=== PATIENT | male | born 1945 | race Caucasian/White ===

== ENCOUNTER 2021-04-18 11:30 | Day surgery (SDC) | payer OTHER, SELFPAY ==
[2021-04-16 10:02] LABS: BILIRUBIN,URINE NEGATIVE (NEGATIVE); BLOOD, URINE NEGATIVE (NEGATIVE); CLARITY/URINE CLEAR (CLEAR); COLOR,URINE YELLOW (YELLOW); GLUCOSE,URINE NEGATIVE (NEGATIVE); KETONES,URINE NEGATIVE (NEGATIVE); LEUKOCYTE ESTERASE ,URINE NEGATIVE (NEGATIVE); NITRITE, URINE NEGATIVE (NEGATIVE); PROTEIN URINE NEGATIVE (NEGATIVE); UROBILINOGEN,URINE 0.2 (0.2-1.0)
[2021-04-16 10:07] LABS: BASOPHILS % (AUTO) 0.3 % (0.0-2.0); EOSINOPHILS % (AUTO) 0.9 % (0.0-4.0); HEMATOCRIT 43.7 % (36-54); HEMOGLOBIN 14.7 g/dL (14.0-18.0); LYMPHOCYTES # (AUTO) 1.4 K/uL (1.0-5.5); LYMPHOCYTES % (AUTO) 28.1 % (20.5-51.5); MEAN CORPUSCULAR HEMOGLOBIN 33 pg (27-31); MEAN CORPUSCULAR HGB CONC 34 % (32-36); MEAN CORPUSCULAR VOLUME 97 fL (79.0-98.0); MONOCYTES # (AUTO) 0.5 K/uL (0.0-1.0); MONOCYTES % (AUTO) 9.1 % (1.7-9.3); NEUTROPHILS # (AUTO) 3.2 K/uL (1.8-7.7); NEUTROPHILS % (AUTO) 61.6 % (40.0-70.0); PLATELET COUNT (AUTO) 179 K/uL (130-430); RED BLOOD CELL COUNT(AUTO) 4.52 MIL/uL (4.2-6.2); RED CELL DISTRIBUTION WIDTH 13.7 % (9.0-15.0); WHITE BLOOD COUNT (AUTO) 5.1 K/uL (4.8-10.8)
[2021-04-16 10:22] LABS: ANION GAP 7 (5-15); CALCIUM 8.9 mg/dL (8.4-11.0); CHLORIDE 108 mmol/L (98-107); CREATININE 0.95 mg/dL (0.55-1.30); GLUCOSE 92 mg/dL (70-99); POTASSIUM 5.4 mmol/L (3.5-5.1); SODIUM SERUM 144 mmol/L (136-145); UREA NITROGEN, BLOOD 22 mg/dL (8-21)
[2021-04-16 10:28] LABS: PROTHROMBIN TIME 10.3 SECS (9.5-12.5)
[~2021-04-18] VITALS: Ht 177.8 cm; Wt 68.5 kg
[2021-04-18] MEDS ORDERED: MIDAZOLAM HCL 5 MG/5 ML VIAL IVP ONE (12:56)
[2021-04-18] MEDS ORDERED: NS IRRIG SOLN 1000 ML IR ONE (12:56)
[2021-04-18] MEDS ORDERED: PROPOFOL 200MG/ 20ML VIAL (DIPRIVAN) IV ONE (12:56)
[2021-04-18] MEDS ORDERED: fentaNYL CITRATE/PF 100 MCG/2 ML AMP IVP ONE (12:56)
[2021-04-18] MEDS ORDERED: LR 500 ML IV.SOLN IV ONE (12:56)
[2021-04-18] MEDS ORDERED: SEVOFLURANE 15 MIN GAS INH ONE (12:56)
[2021-04-18] MEDS ORDERED: DEXAMETHASONE SOD PHOSPHATE 4 MG/ML VIAL IVP ONE (12:56)
[2021-04-18] MEDS ORDERED: BUPIVACAINE /PF 0.25% 30 ML VIAL INJ ONE (12:56)
[2021-04-18] MEDS ORDERED: METOCLOPRAMIDE HCL 10 MG/2 ML VIAL IVP PRN (13:30)
[2021-04-18] MEDS ORDERED: MEPERIDINE HCL/PF 25 MG/ML DISP.SYRIN IVP PRN (13:30)
[2021-04-18] MEDS ORDERED: HYDROmorphone 1 MG/ML INJ. CARTRIDGE IVP PRN (13:30)
[2021-04-18] MEDS ORDERED: LR 1,000 ML IV SCH (13:30)
[2021-04-18] MEDS ORDERED: KETOROLAC TROMETHAMINE 30 MG VIAL IVP PRN (13:30)
[2021-04-18] MEDS ORDERED: ONDANSETRON HCL 4 MG/2 ML VIAL IVP PRN (13:30)
[2021-04-18 16:32] VITALS: BP_SYST 140
== END 2021-04-18 15:10 | disposition home or self-care (01) ==
LOC: SDS 11:30 → SMU 11:30 → SDS 15:10
PROVIDERS: ATTEND Orthopaedic Surgery
DX: G56.02 Carpal tunnel syndrome, left upper limb (principal); I10 Essential (primary) hypertension; Z79.01 Long term (current) use of anticoagulants; Z79.899 Other long term (current) drug therapy; Z20.822 Contact with and (suspected) exposure to COVID-19
CPT/HCPCS: 36415; 64721; 71046; 80048; 81003; 85025; 85610; 85730; 87086; 87426; 93005; J1100; J2250; J2704; J3010; J3490; J7120

== ENCOUNTER 2024-04-24 07:30 | Day surgery (SDC) | payer OTHER ==
[2024-04-18 11:59] LABS: BASOPHILS % (AUTO) 0.4 % (0.0-2.0); EOSINOPHILS % (AUTO) 0.7 % (0.0-4.0); HEMATOCRIT 41.9 % (36-54); HEMOGLOBIN 14.4 g/dL (14.0-18.0); LYMPHOCYTES # (AUTO) 1.7 K/uL (1.0-5.5); LYMPHOCYTES % (AUTO) 28.4 % (20.5-51.5); MEAN CORPUSCULAR HEMOGLOBIN 33 pg (27-31); MEAN CORPUSCULAR HGB CONC 34 % (32-36); MEAN CORPUSCULAR VOLUME 96 fL (79.0-98.0); MONOCYTES # (AUTO) 0.6 K/uL (0.0-1.0); MONOCYTES % (AUTO) 9.4 % (1.7-9.3); NEUTROPHILS # (AUTO) 3.8 K/uL (1.8-7.7); NEUTROPHILS % (AUTO) 61.1 % (40.0-70.0); PLATELET COUNT (AUTO) 193 K/uL (130-430); RED BLOOD CELL COUNT(AUTO) 4.39 MIL/uL (4.2-6.2); RED CELL DISTRIBUTION WIDTH 13.7 % (9.0-15.0); WHITE BLOOD COUNT (AUTO) 6.2 K/uL (4.8-10.8)
[2024-04-18 12:13] LABS: ALANINE AMINOTRANSFERASE 17 U/L (12-78); ALBUMIN 3.7 g/dL (3.4-4.8); ANION GAP 5 (5-15); ASPARTATE AMINOTRANSFERASE 16 U/L (10-37); CALCIUM 9.5 mg/dL (8.4-11.0); CARBON DIOXIDE 32 mmol/L (23-29); CHLORIDE 105 mmol/L (98-107); CREATININE 0.97 mg/dL (0.55-1.30); GLUCOSE 89 mg/dL (74-106); POTASSIUM 4.7 mmol/L (3.5-5.1); SODIUM SERUM 142 mmol/L (136-145); TOTAL BILIRUBIN 0.8 mg/dL (0.0-1.0); TOTAL PROTEIN, SERUM 6.7 g/dL (6.4-8.3); UREA NITROGEN, BLOOD 25 mg/dL (8-21)
[2024-04-18 12:15] LABS: INR 1.1 (0.80-1.20); PROTHROMBIN TIME 11.2 SECS (9.5-12.5)
[~2024-04-24] VITALS: Ht 180.3 cm; Wt 68.0 kg
[2024-04-24] MEDS: CEFAZOLIN SOD 2 GM in D5W 50 ML IV ONE (07:00)
[2024-04-24] MEDS: CELECOXIB 100 MG CAPSULE ONE (08:09)
[2024-04-24] MEDS: ACETAMINOPHEN 500 MG TABLET ONE (08:09)
[2024-04-24] MEDS: SCOPOLAMINE HYDROBROMIDE 1 MG PATCH .72 H (TRANSDERM-SCOP) TD ONE ×2 (08:09→08:30)
[2024-04-24] MEDS: GABAPENTIN 300 MG CAPSULE ONE (08:10)
[2024-04-24] MEDS: oxyCODONE HCL 10 MG TAB.ER.12H PO ONE ×2 (08:10→09:05)
[2024-04-24] MEDS: ACETAMINOPHEN 500 MG TABLET PO ONE (08:30)
[2024-04-24] MEDS: GABAPENTIN 300 MG CAPSULE PO ONE (08:30)
[2024-04-24] MEDS: CELECOXIB 100 MG CAPSULE PO ONE (08:30)
[2024-04-24] MEDS: HYDROmorphone 2 MG/ML VIAL ONE (09:10)
[2024-04-24] MEDS ORDERED: LOSA-413 PO (09:18)
[2024-04-24] MEDS ORDERED: LACTULOSE 20 GM/30 ML UDC PO PRN (09:45)
[2024-04-24] MEDS ORDERED: DIPHENHYDRAMINE HCL 25 MG CAPSULE PO PRN (09:45)
[2024-04-24] MEDS ORDERED: METOCLOPRAMIDE HCL 10 MG/2 ML VIAL IVP PRN ×2 (09:45→12:15)
[2024-04-24] MEDS ORDERED: BISACODYL 10 MG/SUPPOSITORY RC PRN (09:45)
[2024-04-24] MEDS ORDERED: LORATADINE 10 MG TABLET PO PRN (11:00)
[2024-04-24] MEDS ORDERED: oxyCODONE HCL 5 MG TABLET PO PRN ×2 (11:00)
[2024-04-24] MEDS ORDERED: HYDROmorphone 1 MG/ML INJ. CARTRIDGE IVP PRN ×5 (11:00→12:15)
[2024-04-24] MEDS ORDERED: traMADol HCL HCL 50 MG TABLET (ULTRAM) PO PRN (11:00)
[2024-04-24] MEDS ORDERED: ONDANSETRON HCL 4 MG/2 ML VIAL IVP PRN ×2 (11:45→12:15)
[2024-04-24] MEDS ORDERED: ceFAZolin SODIUM 1 GM VIAL ONE (11:58)
[2024-04-24] MEDS ORDERED: MORPHINE 4 MG INJ. 4 MG/ML VIAL IVP PRN (12:15)
[2024-04-24] MEDS: KETOROLAC TROMETHAMINE 10 MG TABLET (TORADOL) PO SCH (14:00)
[2024-04-24] MEDS ORDERED: ceFAZolin SODIUM 2 GM in D5W 50 ML IV SCH (14:00)
[2024-04-24] MEDS: ACETAMINOPHEN 500 MG TABLET PO SCH (14:00)
[2024-04-24] MEDS ORDERED: cefTRIAXone 2 GM in D5W 50 ML IV ONE (14:00)
[2024-04-24 15:20] VITALS: BP_SYST 146; PULSE 86; RESP 18; TEMP 97; O2SAT 98
[2024-04-24 16:00] VITALS: BP_SYST 138; PULSE 81; RESP 20; TEMP 97.2; O2SAT 97
[2024-04-24] MEDS: ceFAZolin SODIUM 2 GM in D5W 50 ML IV SCH (18:03)
[2024-04-24 20:02] VITALS: BP_SYST 124; PULSE 92; RESP 18; TEMP 98.4; O2SAT 97
[2024-04-24] MEDS: SENNOSIDES/DOCUSATE SODIUM 1 TAB TABLET(SENOKOT-S) PO SCH (22:16)
[2024-04-25 00:14] VITALS: BP_SYST 114; PULSE 71; RESP 18; TEMP 97.7; O2SAT 96
[2024-04-25 06:43] LABS: HEMATOCRIT 35.1 % (36-54); HEMOGLOBIN 11.8 g/dL (14.0-18.0); LYMPHOCYTES # (AUTO) 1.1 K/uL (1.0-5.5); LYMPHOCYTES % (AUTO) 9.2 % (20.5-51.5); MEAN CORPUSCULAR HEMOGLOBIN 32 pg (27-31); MEAN CORPUSCULAR HGB CONC 34 % (32-36); MEAN CORPUSCULAR VOLUME 96 fL (79.0-98.0); MONOCYTES % (AUTO) 8.3 % (1.7-9.3); NEUTROPHILS # (AUTO) 9.7 K/uL (1.8-7.7); NEUTROPHILS % (AUTO) 82.5 % (40.0-70.0); PLATELET COUNT (AUTO) 173 K/uL (130-430); RED BLOOD CELL COUNT(AUTO) 3.65 MIL/uL (4.2-6.2); RED CELL DISTRIBUTION WIDTH 13.2 % (9.0-15.0); WHITE BLOOD COUNT (AUTO) 11.7 K/uL (4.8-10.8)
[2024-04-25 07:21] LABS: ALANINE AMINOTRANSFERASE 25 U/L (12-78); ALBUMIN 2.7 g/dL (3.4-4.8); ANION GAP 9 (5-15); ASPARTATE AMINOTRANSFERASE 33 U/L (10-37); CALCIUM 7.9 mg/dL (8.4-11.0); CARBON DIOXIDE 26 mmol/L (23-29); CHLORIDE 105 mmol/L (98-107); CREATININE 1.02 mg/dL (0.55-1.30); GLUCOSE 124 mg/dL (74-106); POTASSIUM 4.4 mmol/L (3.5-5.1); SODIUM SERUM 140 mmol/L (136-145); TOTAL BILIRUBIN 0.6 mg/dL (0.0-1.0); TOTAL PROTEIN, SERUM 5.3 g/dL (6.4-8.3); UREA NITROGEN, BLOOD 20 mg/dL (8-21)
[2024-04-25 08:00] VITALS: BP_SYST 118; PULSE 66; RESP 18; TEMP 98.3; O2SAT 98
[2024-04-25] MEDS: ASPIRIN 81 MG TAB.CHEW PO SCH (08:40)
[2024-04-25] MEDS: DECADRON 4 MG TABLET PO SCH (08:41)
[2024-04-25 09:57] VITALS: BP_SYST 119; PULSE 69; RESP 16; TEMP 97.7; O2SAT 99
[2024-04-25] MEDS ORDERED: CELECOXIB 200 MG CAPSULE PO SCH (11:00)
== END 2024-04-25 10:15 | disposition home or self-care (01) ==
LOC: SDS 07:30 → SMU 07:31 → SDS 04-25 10:15
PROVIDERS: ATTEND Student in an Organized Health Care Education/Training Program
DX: M16.12 Unilateral primary osteoarthritis, left hip (principal); M25.552 Pain in left hip; I10 Essential (primary) hypertension; E78.5 Hyperlipidemia, unspecified; Z98.890 Other specified postprocedural states; Z85.46 Personal history of malignant neoplasm of prostate
CPT/HCPCS: 80053 ×2; 85025 ×2; 85610; 85730; 87081; 36415 ×2; 71046; 27130; 64450; 72170; 88304; 88311; 97162; 97110; 97530; 97116; 96379; J3490 ×3; J0690; J1100; J2704; J0330; J3370; J1170; J7060; J7120; A4649; C1776 ×4; C1713; J8540; 76001; J0696; J3010; J3465